=== PATIENT | male | born 1980 | race Caucasian/White ===

== ENCOUNTER 2016-10-09 14:40 | Emergency (ER) | payer SELFPAY ==
[~2016-10-09] VITALS: Ht 182.9 cm; Wt 68.2 kg
[2016-10-09 14:51] VITALS: BP 105/74; PULSE 95; RESP 14; TEMP 98.4; O2SAT 98
[2016-10-09] MEDS ORDERED: PROPARACAINE HCL 0.5% OPHT SOLN 15 ML BTL EACH EYE ONE (15:00)
--- NOTE | 2016-10-09 15:18 | PD ---
HPI Chief Complaint: Foreign Body Time Seen by Provider: 15:00 Travel History International Travel<30 days: No Contact w/Intl Traveler<30days: No Traveled to known affect area: No History of Present Illness HPI 35-year-old male presents to the emergency room for evaluation of foreign body to his left eye. Patient was grinding metal at work when a small piece got under his protective glasses and into his eye. He trying to immediately washed it out with saline/[id number] drops without success. Came straight to the emergency room. Patient reports excretion pain in the left eye worse with light and when he opens his eye. Denies drainage. PFSH Past Medical History Diminished Hearing: No Endocrine: No Gastrointestinal Disorders: No Genitourinary: No Hepatitis: No Hiatal Hernia: No Hypertension: Yes Musculoskeletal: Yes (HX BROKEN L HAND TREATED IN [place];DEGENERATIVE DISC DISEASE) Neurologic: No Psychiatric: Yes Reproductive: No Respiratory: No Immunizations Current: Yes Thyroid Disease: No Influenza Vaccination: No Past Surgical History Abdominal Surgery: No AICD: No Body Medical Devices: RT ELBOW SCREWS Cardiac Surgery: No Ear Surgery: No Eye Surgery: No Genitourinary Surgery: No Gynecologic Surgery: No Joint Replacement: No Neurologic Surgery: No Oral Surgery: No Pacemaker: No Thoracic Surgery: No Other Surgery: Yes (RIGHT ELBOW, FACE, BILATERAL LEGS) Social History Alcohol Use: Yes (BEER DAILY) Tobacco Use: Yes (05/31 ppd) Substance Use: Yes Allergies-Medications (Allergen,Severity, Reaction): Coded Allergies: White Fish (Verified Allergy, Severe, Anaphylaxis, 10/09/16) Reported Meds & Prescriptions Reported Meds & Active Scripts Active Erythromycin Opth Oint 5 Mg/Gm Oint 1 Applic RIGHT EYE Q6HR Review of Systems Except as stated in HPI: all other systems reviewed are Neg Physical Exam Narrative GENERAL: Well-nourished, well-developed male in no acute distress. Afebrile. Ambulatory. SKIN: Focused skin assessment warm/dry. HEAD: Normocephalic. EYES: PERRL, EOMI, no discharge. No scleral icterus. Moderate injection of the left eye. Visual acuity is 20/40 in the right and 20/50 in the left. Fluorescein staining reveals a less than 1 mm foreign body right in the center of the cornea. There is obvious foreign body. Negative Kerri sign. Positive red light reflex. Slit lamp exam reveals very small foreign bodies surrounding the large body. NECK: Supple, trachea midline. No JVD or lymphadenopathy. CARDIOVASCULAR: Regular rate and rhythm without murmurs, gallops, or rubs. RESPIRATORY: Breath sounds equal bilaterally. No accessory muscle use. PSYCHIATRIC: No delusional thought processes. No hallucinations. Data Data Last Documented VS Vital Signs Date Time Temp Pulse Resp B/P Pulse Ox O2 Delivery O2 Flow Rate FiO2 10/09/16 14:51 98.4 95 14 105/74 98 Orders Proparacaine 0.5% Opth Soln (Alcaine 0.5 (10/09/16 15:00) Orbits, Limited (Two Views) (10/09/16 ) [facility] Medical Decision Making Medical Screen Exam Complete: Yes Emergency Medical Condition: Yes Medical Record Reviewed: Yes Differential Diagnosis Foreign body versus corneal abrasion versus conjunctivitis Narrative Course 35-year-old male presents to the emergency room for evaluation of foreign body to the left eye. Patient was grinding metal when the shrapnel went under his safety glasses. He reports extreme pain. After administering proparacaine, fluorescein staining reveals a less than 1 mm foreign body right in the center of the cornea. Negative Kerri sign. Foreign body was removed without difficulty. No appreciable retained foreign body. X-ray of the orbits reveals no retained foreign body. Visual acuity 20/40 in the right and 20/50 in the left. Patient discharged with prescription for erythromycin eye ointment. Told to follow-up with exhibition specialist return to the emergency room for worsening symptoms. He understands and agrees to plan. Diagnosis Primary Impression: Eye foreign bodies Qualified Code: T15.92XA - Eye foreign bodies, left, initial encounter Referrals: Eeg Technologist Patient Instructions: Eye Foreign Body (ED), General Instructions Additional Instructions: Rest and drink plenty of fluids. Use ointment as directed, 4 times daily. Take ibuprofen with food as directed, as needed for pain. Apply ice to the affected area for 20 minutes at a time, as needed for pain and swelling. Follow-up with an exhibition specialist. Return to the emergency room for worsening symptoms. Med/Other Pt SpecificInfo: Prescription(s) given Scripts Erythromycin Opth Oint 5 Mg/Gm Oint1 Applic RIGHT EYE Q6HR #1 TUBE Ref 0 Prov:Westley Durant MD 10/09/16 Disposition: 01 DISCHARGE HOME Condition: Stable Francoise Mccollum October 09, 2016 15:18
[2016-10-09] MEDS ORDERED: ERYTOIN10 RIGHT EYE (15:37)
--- NOTE | 2016-10-09 16:05 | RADHPO ---
EXAM DATE/TIME: 10/09/2016 15:46 [facility] COMPARISON: No previous studies available for comparison. INDICATIONS : Possible metal foreign body in left eye, patient works with metal. MEDICAL HISTORY : None. SURGICAL HISTORY : None. ENCOUNTER: Initial ACUITY: 1 day PAIN SCORE: 6/10 LOCATION: Left orbit FINDINGS: Limited examination of the orbits was performed. There is no evidence of fracture involving the bony structures surrounding the orbits. The maxillary sinuses appear to be well aerated. No radiopaque foreign bodies are seen in the soft tissues. CONCLUSION: Unremarkable exam. No metallic foreign bodies. Pancho Marin MD on October 09, 2016 at 16:02 Board Certified Radiologist. This report was verified electronically.
== END 2016-10-09 16:32 | disposition home or self-care (01) ==
LOC: PHEFT 14:40
DX: T15.92XA Foreign body on external eye, part unspecified, left eye, initial encounter (principal); I10 Essential (primary) hypertension; F17.200 Nicotine dependence, unspecified, uncomplicated
CPT/HCPCS: 65220; 70250

== ENCOUNTER 2017-05-27 12:22 | Emergency (ER) | payer SELFPAY ==
[~2017-05-27] VITALS: Ht 185.4 cm; Wt 68.1 kg
[~2017-05-27 12:22] MED LIST: ERYTOIN10 RIGHT EYE
[2017-05-27 12:27] VITALS: BP 134/84; PULSE 86; RESP 16; TEMP 98.4; O2SAT 98
[2017-05-27] MEDS ORDERED: CEPH-460 PO (13:02)
--- NOTE | 2017-05-27 13:04 | PD ---
HPI Chief Complaint: Skin Problem Time Seen by Provider: 12:43 Travel History International Travel<30 days: No Contact w/Intl Traveler<30days: No Traveled to known affect area: No History of Present Illness HPI 36-year-old male presents to the emergency department for evaluation of skin lesion to his right neck approximately one month. He states he also has tenderness to the right axilla. He states he has had bloody drainage from the area. No fevers or chills. He has no medical problems and takes no prescribed medications. He has not been previously evaluated for this. Moderate severity. No exacerbating or alleviating factors. PFSH Past Medical History Diminished Hearing: No Endocrine: No Gastrointestinal Disorders: No Genitourinary: No Hepatitis: No Hiatal Hernia: No Hypertension: Yes Musculoskeletal: Yes (HX BROKEN L HAND TREATED IN [place];DEGENERATIVE DISC DISEASE) Neurologic: No Psychiatric: Yes Reproductive: No Respiratory: No Immunizations Current: Yes Thyroid Disease: No Influenza Vaccination: No Past Surgical History Abdominal Surgery: No AICD: No Body Medical Devices: RT ELBOW SCREWS Cardiac Surgery: No Ear Surgery: No Eye Surgery: No Genitourinary Surgery: No Gynecologic Surgery: No Joint Replacement: No Neurologic Surgery: No Oral Surgery: No Pacemaker: No Thoracic Surgery: No Other Surgery: Yes (RIGHT ELBOW, FACE, BILATERAL LEGS) Social History Alcohol Use: Yes (BEER DAILY) Tobacco Use: Yes (/ ppd) Substance Use: Yes Allergies-Medications (Allergen,Severity, Reaction): Coded Allergies: Fish Containing Products (Unverified Allergy, Severe, Anaphylaxis, ) Reported Meds & Prescriptions Reported Meds & Active Scripts Active No Active Prescriptions or Reported Medications Review of Systems Except as stated in HPI: all other systems reviewed are Neg Physical Exam Narrative GENERAL: Well-nourished, well-developed male patient, ambulatory. Afebrile SKIN: Focused skin assessment warm/dry. Patient has a small 1 cm scabbed discolored area to the right neck without surrounding erythema. No current drainage. No induration or evidence of abscess. Patient does have a small mobile lymph node noticed her right axilla. HEAD: Normocephalic. Atraumatic. EYES: No scleral icterus. No injection or drainage. NECK: Supple, trachea midline. No JVD or lymphadenopathy. CARDIOVASCULAR: Regular rate and rhythm without murmurs, gallops, or rubs. RESPIRATORY: Breath sounds equal bilaterally. No accessory muscle use. Lungs sounds are clear to auscultation. GASTROINTESTINAL: Abdomen soft, non-tender, nondistended. MUSCULOSKELETAL: No cyanosis, or edema. BACK: Nontender without obvious deformity. No CVA tenderness. Data Data Last Documented VS Vital Signs Date Time Temp Pulse Resp B/P (MAP) Pulse Ox O2 Delivery O2 Flow Rate FiO2 05/27/17 12:27 98.4 86 16 134/84 (101) 98 MDM Medical Decision Making Medical Screen Exam Complete: Yes Emergency Medical Condition: Yes Medical Record Reviewed: Yes Differential Diagnosis Cellulitis versus skin lesion versus abscess Narrative Course 36-year-old male presents to the emergency department for evaluation of skin lesion for 1 month. He does state he has been getting drainage from the area. I'll start the patient on Keflex. However, I strongly encouraged her to follow up with a primary care physician for biopsy of the skin lesion. He'll be given information on the [facility]. He verbalizes agreement and understanding. The patient was discharged in stable condition with instructions, including return instructions and follow up instructions. Diagnosis Primary Impression: Skin lesion of neck Referrals: [facility] call for appointment Patient Instructions: General Instructions Additional Instructions: Take Keflex as directed until gone. This is $4 at [facility]. Follow-up [facility] for further evaluation. Return to the emergency department for any acute worsening of symptoms. Med/Other Pt SpecificInfo: Prescription(s) given Scripts Cephalexin (Keflex) 500 Mg Cap 500 MG PO Q6H for Infection for 10 Days, #40 CAP 0 Refills Prov: Lore Miller 05/27/17 Disposition: 01 DISCHARGE HOME Condition: Stable Lore Miller May 27, 2017 13:04
== END 2017-05-27 13:15 | disposition home or self-care (01) ==
LOC: PHEFT 12:22
DX: L98.9 Disorder of the skin and subcutaneous tissue, unspecified (principal); I10 Essential (primary) hypertension; F17.210 Nicotine dependence, cigarettes, uncomplicated; Z72.89 Other problems related to lifestyle
CPT/HCPCS: 99283

== ENCOUNTER 2017-07-26 15:28 | Emergency (ER) | payer SELFPAY ==
[~2017-07-26] VITALS: Ht 185.4 cm; Wt 69.8 kg
[~2017-07-26 15:28] MED LIST changes: +CEPH-460 PO; -ERYTOIN10 RIGHT EYE
[2017-07-26 15:33] VITALS: BP 147/78; PULSE 81; RESP 16; TEMP 98.3; O2SAT 99
[2017-07-26] MEDS ORDERED: BACT800T5 PO (16:04)
--- NOTE | 2017-07-26 16:04 | PD ---
HPI Chief Complaint: Lump, Cyst, Hernia Time Seen by Provider: 15:51 Travel History International Travel<30 days: No Contact w/Intl Traveler<30days: No Traveled to known affect area: No History of Present Illness HPI This is a 36-year-old male here with a painful lesion to his right anterior neck present for the last 6 months. He reports that the skin lesion has steadily increased in size and started draining over the last week. He denies fever or chills. No difficulty swallowing. No weight loss or night sweats. Symptom severity is mild to moderate. No aggravating or alleviating factors. PFSH Past Medical History Diminished Hearing: No Endocrine: No Gastrointestinal Disorders: No Genitourinary: No Hepatitis: No Hiatal Hernia: No Hypertension: Yes Musculoskeletal: Yes (HX BROKEN L HAND TREATED IN [place];DEGENERATIVE DISC DISEASE) Neurologic: No Psychiatric: Yes Reproductive: No Respiratory: No Immunizations Current: Yes Thyroid Disease: No Past Surgical History Abdominal Surgery: No AICD: No Body Medical Devices: RT ELBOW SCREWS Cardiac Surgery: No Ear Surgery: No Eye Surgery: No Genitourinary Surgery: No Gynecologic Surgery: No Joint Replacement: No Neurologic Surgery: No Oral Surgery: No Pacemaker: No Thoracic Surgery: No Other Surgery: Yes (RIGHT ELBOW, FACE, BILATERAL LEGS) Social History Alcohol Use: Yes (BEER DAILY) Tobacco Use: Yes (05/31 ppd) Substance Use: No Allergies-Medications (Allergen,Severity, Reaction): Coded Allergies: Fish Containing Products (Unverified Allergy, Severe, Anaphylaxis, 07/26/17) Reported Meds & Prescriptions Reported Meds & Active Scripts Active Bactrim DS (Sulfamethoxazole-Trimethoprim) 800-160 Mg Tab 1 Tab PO BID Review of Systems Except as stated in HPI: all other systems reviewed are Neg General / Constitutional: No: Fever Physical Exam Narrative GENERAL: Alert and well-appearing 36-year-old male SKIN: Warm and dry. 1 CM pedunculated fleshy growth on the right anterior neck. The area is draining clear fluid. The lesion is mildly erythematous. There is no fluctuance or induration. No regional lymphadenopathy or palpable mass of the neck. HEAD: Normocephalic. EYES: Pupils equal and round. No injection or drainage. ENT: No nasal bleeding or discharge. Mucous membranes pink and moist. NECK: Trachea midline. No JVD. No lymphadenopathy. No palpable neck mass. Skin noted above. CARDIOVASCULAR: Regular rate and rhythm. RESPIRATORY: No accessory muscle use. Clear to auscultation. Breath sounds equal bilaterally. GASTROINTESTINAL: Abdomen soft, non-tender, nondistended. Hepatic and splenic margins not palpable. Data Data Last Documented VS Vital Signs Date Time Temp Pulse Resp B/P (MAP) Pulse Ox O2 Delivery O2 Flow Rate FiO2 07/26/17 15:33 98.3 81 16 147/78 (101) 99 Orders Orders Mandatory Outpatient Referral (07/26/17 16:04) MDM Medical Decision Making Medical Screen Exam Complete: Yes Emergency Medical Condition: Yes Differential Diagnosis Neoplastic skin lesion, abscess, cellulitis Narrative Course 36-year-old male here with a 1 cm pedunculated skin lesions to the right anterior neck. He reports the lesion has been present for greater than 6 months. Over the last week it has increased in size instructed to strain. No regional lymphadenopathy or neck mass palpated. The lesion appears to involve the epidermis only. The area is draining and he will on antibiotics for secondary infection. The importance of follow-up with national opelint analyst/general surgeon for biopsy/removal of lesion stressed. He will be given a mandatory referral for follow-up this week. Patient and family verbalized understanding and agreed plan. There is no coverage for plastics or dermatology. Patient will be given mandatory referral for general surgery/ENT. Diagnosis Primary Impression: Skin lesion Referrals: Darrion Goel MD, Anthony T. MD [place] Counselor Additional Instructions: The lesion on you neck needs to be removed for biopsy. you were given a mandatory referral for follow-up with general surgeon. The hospital will be contacting you to schedule this appointment. If you do not hear from the hospital in 24-48 hours call the hospital. Scripts Sulfamethoxazole-Trimethoprim (Bactrim DS) 800-160 Mg Tab 1 TAB PO BID for Infection, #20 TAB 0 Refills Prov: Lucretia Monet 07/26/17 Disposition: 01 DISCHARGE HOME Condition: Stable Lucretia Monet Jul 26, 2017 16:04
== END 2017-07-26 16:30 | disposition home or self-care (01) ==
LOC: PHEFT 15:28
DX: L98.9 Disorder of the skin and subcutaneous tissue, unspecified (principal); I10 Essential (primary) hypertension; F17.210 Nicotine dependence, cigarettes, uncomplicated; Z91.013 Allergy to seafood
CPT/HCPCS: 99283

== ENCOUNTER 2017-10-01 11:38 | Emergency (ER) | payer SELFPAY | END 2017-10-01 12:27 | disposition home or self-care (01) | LOC: PHEFT 11:38 | DX: K04.7 Periapical abscess without sinus (principal); I10 Essential (primary) hypertension; F17.200 Nicotine dependence, unspecified, uncomplicated | CPT/HCPCS: 99283 ==

== ENCOUNTER → 2017-10-11 | Day surgery (SDC) | END | disposition home or self-care (01) | DX: C43.4 Malignant melanoma of scalp and neck (principal); I10 Essential (primary) hypertension; F17.200 Nicotine dependence, unspecified, uncomplicated | CPT/HCPCS: 00300; 11606; 38510; 78195; 88305; 88307; 88341; 88342; A9541; J1100; J2250; J2370; J2405; J2710; J3010 ==